=== PATIENT | female | born 1970 | race Caucasian/White ===

== ENCOUNTER 2024-10-05 10:56 | Emergency (ER) | payer MEDICARE ==
[2024-10-05] MEDS ORDERED: FAMOTIDINE 20 MG/2 ML VIAL IV ONE (11:25)
[2024-10-05 11:35] LABS: PT Prothrombin Time 13.4 SECONDS (10-13.0); Protime INR 1.18
[2024-10-05 11:37] LABS: Absolute Basophils 0.1 K/uL (0-0.5); Absolute Eosinophils 1.3 K/uL (0-0.5); Absolute Monocytes 0.7 K/uL (0.1-1.3); Absolute Neutrophil 5.1 K/uL (1.8-8.0); Basophils % 0.8 % (0-1.3); Eosinophils % 13.7 % (0-4.4); Hematocrit 42.7 % (36.0-45.0); Hemoglobin 14.4 g/dL (12.0-15.0); MCH 27.5 pg (27.0-35.0); MCHC 33.8 g/dL (32.0-36.0); MCV 81.4 fL (80-100); MPV 8.4 fL (7.6-11.3); Monocytes % 7.1 % (3.3-12.3); Neutrophils % 56.4 % (41.7-73.7); Nucleated Red Blood Cells % 0.1 % (0-0); Platelets 240 thou/uL (152-406); RBC Red Blood Cell Count 5.25 M/uL (3.86-4.86); Red Cell Distribution Width 15.5 % (12.1-15.2)
--- NOTE | 2024-10-05 11:46 | RAD REPORT ---
EXAM: Chest Single View HISTORY: 53 years Female CHEST PAIN COMPARISON: 03/27/2024 FINDINGS: LUNGS/PLEURA: The lungs are clear. No pleural effusions or pneumothorax. No pulmonary edema. CARDIAC/MEDIASTINUM: The cardiac silhouette is within normal limits. UPPER ABDOMEN: No significant abnormality. BONES: No acute abnormality. LINES/TUBES/OTHER: N/A IMPRESSION: No evidence of acute cardiopulmonary disease.
[2024-10-05 11:47] LABS: ALT/SGPT 33 U/L (13-56); AST/SGOT 23 U/L (15-37); Albumin 3.2 g/dL (3.4-5.0); Albumin/Globulin Ratio 0.8 (1.1-1.8); Alkaline Phosphatase 82 U/L (45-117); Anion Gap 9.9 mEq/L (5.0-15.0); BUN Blood Urea Nitrogen 9 mg/dL (7-18); Bicarbonate 25 mEq/L (21-32); Bilirubin Total 0.3 mg/dL (0.2-1.0); Globulin 4.2 g/dL (2.3-3.5); Glomerular Filtration Rate 64 ml/min (=/>90); Glucose Level 103 mg/dL (74-106); Lipase 44 U/L (13-75); Magnesium 1.8 mg/dL (1.6-2.4); NT PRO-BNP 46 pg/mL (<125); Potassium 3.9 mEq/L (3.5-5.1); Protein, Total 7.4 g/dL (6.4-8.2); Sodium Level 138 mEq/L (136-145); Troponin High Sensitivity 8.2 pg/mL (<58.9)
[2024-10-05 11:56] LABS: Bilirubin Direct < 0.2 mg/dL (0-0.2); Bilirubin Indirect, Calculated 0.1 mg/dL (0.2-0.8)
--- NOTE | 2024-10-05 12:34 | RAD REPORT ---
EXAMINATION: US LOWER EXTREMITY VENOUS DOPPLER BILATERAL CLINICAL INDICATION: Female, 53 years old.PAIN TECHNIQUE: Complete bilateral duplex sonography of the lower extremity veins was performed. The exami nation included compression for vein patency, color Doppler imaging and flow augmentation in response to distal compression of the distal external iliac, common femoral, femoral, popliteal, faustina hillary, tibial and great saphenous veins. [id number]. COMPARISON: No prior exams FINDINGS: Duplex sonography imaging demonstrates all deep examined to be fully compressible with spontaneous, p hasic and augmented flow bilaterally. IMPRESSION: No evidence of deep venous thrombosis seen in either lower extremity.
--- NOTE | 2024-10-05 12:50 | RAD REPORT ---
EXAMINATION: CTA CHEST PE CLINICAL INDICATION: Female, 53 years old. CHEST PAIN TECHNIQUE: This examination was performed according to an angiographic protocol with 3D post-processi ng. This involves 3D reconstructions, MIPs, volume rendered images and/or shaded surface rendering. One or more of the following dose reduction techniques were used: Automated exposure control, adjustm ent of the mA and/or kV according to patient size, and/or iterative reconstruction. Unless otherwise specified, incidental findings do not require dedicated imaging follow-up. [id number]. COMPARISON: Same day chest radiograph. FINDINGS: LOWER NECK: Visualized thyroid gland and soft tissues are normal. LUNGS AND AIRWAYS: Airways are clear. No evidence of airspace or interstitial process.No suspicious a nd/or stable pulmonary nodules. PLEURA: No pleural effusion. No pneumothorax. Hemidiaphragms are normally positioned. MEDIASTINUM AND LYMPH NODES: No mediastinal mass or fluid collection. Normal size mediastinal, hilar, and axillary lymph nodes. Small hiatal hernia. THORACIC AORTA: No thoracic aortic aneurysm. PULMONARY ARTERIES: Caliber is within normal limits. HEART: Normal heart size. No coronary calcifications.No significant pericardial effusion. OSSEOUS STRUCTURES AND CHEST WALL: UPPER ABDOMEN: No acute abnormalities. IMPRESSION: No evidence of pulmonary emboli to the subsegmental level. Lungs are clear.
--- NOTE | 2024-10-05 13:27 | RAD REPORT ---
EXAMINATION: CT ABDOMEN AND PELVIS WITHOUT CONTRAST CLINICAL INDICATION: Female, 53 years old.ABD PAIN TECHNIQUE: CT abdomen and pelvis was performed, without IV contrast, as per department protocol. Axia l, sagittal and coronal reconstructions were obtained. One or more of the following dose reduction techniques were used: Automated exposure control, adjustment of the mA and/or kV according to the pat ient size, and/or iterative reconstruction. Unless otherwise specified, incidental findings do not require dedicated imaging follow-up. [id number]. IV CONTRAST: Not administered. COMPARISON: 07/10/2009 FINDINGS: The lack of intravenous contrast limits the sensitivity of this exam for evaluation of solid visceral organs, vascular structures, and retroperitoneum. LOWER CHEST: See separate report UPPER GI: No significant abnormality. LIVER: No significant focal abnormality. GALLBLADDER/BILE DUCTS: Cholecystectomy.? PANCREAS: No mass, ductal dilation, or kerwin-pancreatic fluid. SPLEEN: Unremarkable. ADRENALS: No adrenal masses. KIDNEYS AND URETERS: No hydronephrosis.Limited evaluation for renal lesions in the absence of IV cont rast. ABDOMINAL AORTA AND OTHER VESSELS: Normal caliber aorta and IVC. PERITONEUM: No abnormal free fluid. No free air. LYMPH NODES: No pathologic lymphadenopathy. ABDOMINAL WALL: Unremarkable SMALL BOWEL/COLON: Small bowel has normal course and caliber. No colonic wall thickening or pericolon ic inflammatory changes.Normal appendix. Mild diverticulosis without diverticulitis. URINARY BLADDER: Underdistended but grossly unremarkable. REPRODUCTIVE ORGANS: 2.4 cm left and 1.5 cm right adnexal cysts. These does not require follow-up. MUSCULOSKELETAL: No acute or suspicious osseous abnormality. ADDITIONAL FINDINGS: None. IMPRESSION: No acute findings within the abdomen or pelvis. No appendicitis. Incidental findings as noted above.
[2024-10-05 13:48] LABS: Specific Gravity 1.027 (1.005-1.030); Urine Bacteria None Seen /HPF (<20); Urine Bilirubin NEGATIVE (Negative); Urine Blood Negative (Negative); Urine Clarity Clear (Clear); Urine Color Light-Yellow (Yellow); Urine Culture Reflex Order NOT NEEDED; Urine Glucose NEGATIVE (Negative); Urine Ketones NEGATIVE (Negative); Urine Microscopic Reflex YN ORDER UMIC; Urine Mucus Slight /HPF (None Seen); Urine Nitrite NEGATIVE (Negative); Urine Protein TRACE (Negative); Urine Urobilinogen Normal (Normal); Urine WBC <5 /HPF (<5)
--- NOTE | 2024-10-05 14:12 | EDPHYS ---
Physician Documentation [facility] Name: Pinky Warner Age: 53 yrs Sex: Female : 1970 Arrival Date: 10/05/2024 Time: 10:56 Bed 2 Private MD: ED Physician Albert Waldron HPI: 10/05 11:08 This 53 yrs old Female presents to ER via Unassigned with complaints of Chest lester Pain. 11:08 The patient or guardian reports chest pain that is located primarily in the anterior lester chest wall, bilaterally. Onset: just prior to arrival. The pain does not radiate. Associated signs and symptoms: Pertinent positives: shortness of breath. The chest pain is described as aching. Modifying factors: The symptoms are alleviated by remaining still. Severity of pain: At its worst the pain was moderate in the emergency department the pain is unchanged. The patient has experienced similar episodes in the past, a few times. LOGISTIC MANAGER: 11:10 LMP N/A - Post-menopause, Not jl7 Historical: - Allergies: 11:10 Peanut; jl7 11:10 all nuts; jl7 11:10 Wasps; jl7 11:10 Bees; jl7 11:10 cilantro; jl7 11:10 Yoli; jl7 11:10 apricots; jl7 11:10 bronchosol; jl7 11:10 Levaquin; jl7 11:10 Keflex; jl7 11:10 Medrol; jl7 11:10 Symbicort; jl7 11:10 Ultram; jl7 - Home Meds: 11:10 Celexa 10 mg Oral tablet daily [Active]; Albuterol Inhl [Active]; Lomotil oral jl7 [Active]; ProAir RespiClick inhalation [Active]; fiorcet [Active]; Loprox (as olamine) topical [Active]; Inderal LA Oral [Active]; - PMHx: 11:10 colitis; Asthma; Migraine; Lupus erythematosus; acid reflux; Hypothyroidism; jl7 - Immunization history:: Adult Immunizations unknown. - Infectious Disease History:: Denies. - Family history:: not pertinent. - Social history:: Smoking status: Patient denies any tobacco usage or history of. ROS: 11:08 Constitutional: Negative for fever, chills, and weight loss, Eyes: Negative for injury, lester pain, redness, and discharge, ENT: Negative for injury, pain, and discharge, Neck: Negative for injury, pain, and swelling, Respiratory: Negative for shortness of breath, cough, wheezing, and pleuritic chest pain, Abdomen/GI: Negative for abdominal pain, nausea, vomiting, diarrhea, and constipation, Back: Negative for injury and pain, : Negative for injury, bleeding, discharge, and swelling, MS/Extremity: Negative for injury and deformity, Skin: Negative for injury, rash, and discoloration, Neuro: Negative for headache, weakness, numbness, tingling, and seizure, Psych: Negative for depression, anxiety, suicide ideation, homicidal ideation, and hallucinations, Allergy/Immunology: Negative for hives, rash, and allergies, Endocrine: Negative for neck swelling, polydipsia, polyuria, polyphagia, and marked weight changes, Hematologic/Lymphatic: Negative for swollen nodes, abnormal bleeding, and unusual bruising, 11:08 Cardiovascular: Positive for chest pain, Exam: 11:08 Constitutional: This is a well developed, well nourished patient who is awake, alert, lester and in no acute distress. Head/Face: Normocephalic, atraumatic. Eyes: Pupils equal round and reactive to light, extra-ocular motions intact. Lids and lashes normal. Conjunctiva and sclera are non-icteric and not injected. Cornea within normal limits. Periorbital areas with no swelling, redness, or edema. ENT: Nares patent. No nasal discharge, no septal abnormalities noted. Tympanic membranes are normal and external auditory canals are clear. Oropharynx with no redness, swelling, or masses, exudates, or evidence of obstruction, uvula midline. Mucous membranes moist. Neck: Trachea midline, no thyromegaly or masses palpated, and no cervical lymphadenopathy. Supple, full range of motion without nuchal rigidity, or vertebral point tenderness. No Meningismus. Chest/axilla: Normal chest wall appearance and motion. Nontender with no deformity. No lesions are appreciated. Cardiovascular: Regular rate and rhythm with a normal S1 and S2. No gallops, murmurs, or rubs. Normal PMI, no JVD. No pulse deficits. Respiratory: Lungs have equal breath sounds bilaterally, clear to auscultation and percussion. No rales, rhonchi or wheezes noted. No increased work of breathing, no retractions or nasal flaring. Abdomen/GI: Soft, non-tender, with normal bowel sounds. No distension or tympany. No guarding or rebound. No evidence of tenderness throughout. Back: No spinal tenderness. No costovertebral tenderness. Full range of motion. Skin: Warm, dry with normal turgor. Normal color with no rashes, no lesions, and no evidence of cellulitis. MS/ Extremity: Pulses equal, no cyanosis. Neurovascular intact. Full, normal range of motion., bilateral aka Neuro: Awake and alert, GCS 15, oriented to person, place, time, and situation. Cranial nerves II-XII grossly intact. Motor strength 5/5 in all extremities. Sensory grossly intact. Cerebellar exam normal. Normal gait. Psych: Awake, alert, with orientation to person, place and time. Behavior, mood, and affect are within normal limits. 11:08 Musculoskeletal/extremity: DVT Exam: No signs of deep vein thrombosis. no pain, no swelling, no tenderness, negative Homans' sign noted on exam, no appreciated bluish discoloration, no erythema, no increased warmth, 11:57 ECG was reviewed by the Attending Physician. [facility] 13:30 ECG was reviewed by the Attending Physician. [facility] Vital Signs: 10:56 Pulse 65; Resp 15; Temp 97; Pulse Ox 95% ; Weight 125.19 kg; Height 5 ft. 4 in. ; Pain jl7 3/10; 11:29 BP 111 / 57; Pulse 64; Resp 18; Pulse Ox 98% ; kn 12:12 BP 111 / 55; Pulse 61; Resp 15; Pulse Ox 97% ; jl7 13:25 BP 114 / 53; Pulse 62; Resp 18; Pulse Ox 100% on R/A; kn 10:56 Body Mass Index 47.37 (125.19 kg, 162.56 cm) jl7 10:56 Pain Scale: Adult jl7 MDM: 11:04 Medical Screening Exam initiated [facility] 11:11 Differential diagnosis: abnormal EKG, acute myocardial infarction, acute pericarditis, lester coronary artery disease chest wall pain, congestive heart failure Cholelithiasis costochondritis, hiatal hernia, peptic ulcer disease, pneumonia, pulmonary embolus, stable angina, thoracic aortic disection, unstable angina. HEART Score: History:. The patient was given aspirin in the Emergency Department. DANIELLE Risk Score: 1 - Three or more CAD risk factors, [Family Hx], [HTN], [Elevated Cholesterol], [DM], 1 - Recent [<24hrs] Severe Angina, TOTAL SCORE = 2. Data reviewed: vital signs, nurses notes, lab test result(s), EKG, radiologic studies, plain films. Consideration of Admission/Observation Patient was admitted/placed on observation. Escalation of care including admission/observation considered. I considered the following discharge prescriptions or medication management in the emergency department Medications were administered in the Emergency Department. See MAR. Independent interpretation of the following test(s) in the Emergency Department EKG: See my EKG interpretation above. Test considered but Not performed: Ultrasound no 2 d echo. Care significantly affected by the following chronic conditions: Diabetes, Hypertension, Obesity. Counseling: I had a detailed discussion with the patient and/or guardian regarding the historical points, exam findings, and any diagnostic results supporting the discharge/admit diagnosis, lab results, radiology results, the need for further work-up and treatment in the hospital. 10/05 11:07 Order name: Basic Metabolic Panel; Complete Time: 12:11 [facility] 10/05 11:07 Order name: CBC with Diff; Complete Time: 12:11 [facility] 10/05 11:07 Order name: LFT's; Complete Time: 12:11 [facility] 10/05 11:07 Order name: Magnesium; Complete Time: 12:11 [facility] 10/05 11:07 Order name: NT PRO-BNP; Complete Time: 12:11 [facility] 10/05 11:07 Order name: PT-INR; Complete Time: 12:11 10/05 11:07 Order name: Troponin HS; Complete Time: 12:11 [facility] 10/05 11:07 Order name: Lipase; Complete Time: 12:11 [facility] 10/05 11:07 Order name: Urinalysis w/ reflexes; Complete Time: 14:06 [facility] 10/05 12:52 Order name: Troponin High Sensitivity: 1 pm; Complete Time: 14:06 [facility] 10/05 11:07 Order name: XRAY Chest (1 view); Complete Time: 12:11 [facility] 10/05 11:07 Order name: US Extremity Venous W Compression Eliezer; Complete Time: 13:45 [facility] 10/05 11:07 Order name: CT Chest For PE Angio; Complete Time: 13:45 10/05 12:54 Order name: CT Abd/Pelvis - Without Contrast; Complete Time: 13:45 [facility] 10/05 12:52 Order name: EKG; Complete Time: 12:53 [facility] 10/05 11:07 Order name: Cardiac monitoring; Complete Time: 11:16 [facility] 10/05 11:07 Order name: EKG - Nurse/Tech; Complete Time: 11:16 [facility] 10/05 11:07 Order name: IV Saline Lock; Complete Time: :16 [facility] 10/05 11:07 Order name: Labs collected and sent; Complete Time: 11:24 [facility] 10/05 11:07 Order name: O2 Per Protocol; Complete Time: 11:16 [facility] 10/05 11:07 Order name: O2 Sat Monitoring; Complete Time: :16 [facility] 10/05 12:52 Order name: EKG - Nurse/Tech; Complete Time: 13:28 [facility] EC:57 Rate is 72 beats/min. Rhythm is regular. QRS [place] is Normal. SC interval is normal. QRS lester interval is normal. QT interval is normal. T waves are Normal. No ST changes noted. Clinical impression: NSR w/ Non-specific ST/T Changes and No evidence of ischemia. Interpreted by me. Reviewed by me. 13:30 Rate is 62 beats/min. Rhythm is regular. QRS [place] is Normal. SC interval is normal. QRS lester interval is normal. QT interval is normal. No Q waves. T waves are Normal. No ST changes noted. Clinical impression: NSR w/ Non-specific ST/T Changes and No evidence of ischemia. Interpreted by me. Reviewed by me. Administered Medications: 11:16 Not Given (pt received ASA 324mg via EMS ptaa): aspirinchewable tablet 81 mg PO once kn 11:29 Drug: Famotidine IVP 20 mg IVP once; dilute with 10 mL 0.9% NaCl; give over 2 minutes jl7 Route: IVP; Site: left antecubital; 12:10 Follow up: Response: No adverse reaction jl7 14:59 Drug: Nitrofurantoin PO 100 mg PO once; administer with food Route: PO; kn 15:10 Follow up: Response: Medication administered at discharge. jl7 14:59 Drug: Rocephin IV 1 grams IV at per protocol once; Given slow IV push per pharmacy kn instructions Route: IV; Rate: per protocol; Site: left antecubital; 15:05 Follow up: Response: No adverse reaction; IV Status: Completed infusion jl7 Disposition Summary: 10/05/24 14:12 Discharge Ordered Notes: Location: Home lester Problem: new lester Condition: Stable lester Diagnosis - Chest pain, unspecified lester - Pleurisy lester - Obesity, unspecified lester - UTI/ Urinary tract infection, site not specified lester Followup: lester - With: Private Physician - When: 2 - 3 days - Reason: Recheck today's complaints, Re-evaluation by your physician Followup: lester - With: Duong Barron MD - When: 2 - 3 days - Reason: Recheck today's complaints, Re-evaluation by your physician Discharge Instructions: - Discharge Summary Sheet lester - Nonspecific Chest Pain, Adult lester - Chest Wall Pain lester - Obesity, Adult lester - Pleurisy lester - Chest Wall Pain, [id number] lester - Urinary Tract Infection, Adult, Obhs-qu-[id number] lester - Nonspecific Chest Pain, Adult, Hhtz-bt-[id number] lester - Aspirin and Your Heart lester - Pleurisy, Gvwb-[id number] lester - Obesity, Adult, Tago-vj-Yvuc lester Forms: - Medication Reconciliation Form lester - Antibiotic Education lester - Prescription Opioid Use lester - Patient Portal Instructions lester - Leadership Thank You Letter [facility] Prescriptions: - Macrobid 100 mg Oral Capsule - take 1 capsule ORAL route every 12 hours for 7 days; 14 capsule; Refills: 0, lester Product Selection Permitted Signatures: Dispatcher [employer] Albert Rosa MD MD cha Leal, Jahala, RN RN jl7 KULWANT AYALA RN RN kn Corrections: (The following items were deleted from the chart) 11:07 11:07 BASIC METABOLIC PANEL+C.LAB.BRZ ordered. EDMS EDMS 11:07 11:07 CBC+H.LAB.BRZ ordered. EDMS EDMS 11:07 11:07 HEPATIC FUNCTION+C.LAB.BRZ ordered. EDMS EDMS 11:07 11:07 MAGNESIUM+C.LAB.BRZ ordered. EDMS EDMS 11:07 11:07 PROBNP+C.LAB.BRZ ordered. EDMS EDMS 11:07 11:07 PROTIME (+INR)+COAG.LAB.BRZ ordered. EDMS EDMS 11:07 11:07 Troponin High Sensitivity+C.LAB.BRZ ordered. EDMS EDMS 11: 11:07 LIPASE+C.LAB.BRZ ordered. EDMS EDMS 11: 11:07 Urinalysis+U.LAB.BRZ ordered. EDMS EDMS 11: 11:07 Chest Single View+RAD.RAD.BRZ ordered. EDMS EDMS 11: 11:07 Extrem Venous W Compression Eliezer+US.RAD.BRZ ordered. EDMS EDMS 11: 11:07 Chest For PE Angio+CT.RAD.BRZ ordered. EDMS EDMS
--- NOTE | 2024-10-05 14:12 | ER ---
Nurse's Notes [facility] Name: Pinky Warner Age: 53 yrs Sex: Female : 1970 Arrival Date: 10/05/2024 Time: 10:56 Bed 2 Private MD: Diagnosis: Chest pain, unspecified;Pleurisy;Obesity, unspecified;UTI/ Urinary tract infection, site not specified Presentation: 10/05 10:56 Chief complaint: EMS states: Toned out for generalized pain, on arrival to scene pt c/o jl7 intermittent CP, dizziness and SOB x 2 weeks. Coronavirus screen: At this time, the client does not indicate any symptoms associated with coronavirus-19. Ebola Screen: No symptoms or risks identified at this time. Initial Sepsis Screen: Does the patient meet any 2 criteria? No. Patient's initial sepsis screen is negative. Does the patient have a suspected source of infection? No. Patient's initial sepsis screen is negative. Risk Assessment: Do you want to hurt yourself or someone else? Patient reports no desire to harm self or others. Onset of symptoms was October 05, 2024. 10:56 Method Of Arrival: Ambulatory jl7 10:56 Acuity: DOREEN 2 jl7 10:56 Care prior to arrival: Medication(s) given: ASA, 81 mg, x 4, Normal saline infusion, jl7 100 mL zofran 4 mg, Nitro x1 IV initiated. 20 GA, in the left antecubital area. Triage Assessment: 11:10 General: Appears in no apparent distress. uncomfortable, Behavior is calm, cooperative, jl7 appropriate for age. Pain: Complains of pain in mid-sternal area Pain currently is 3 out of 10 on a pain scale. at worst was 10 out of 10 on a pain scale. Neuro: Level of Consciousness is awake, alert, obeys commands, Oriented to person, place, time, situation. Cardiovascular: Patient's skin is warm and dry. Rhythm is regular. Respiratory: Airway is patent Respiratory effort is even, unlabored, Respiratory pattern is regular, symmetrical. GI: Derm: Skin is pink, warm \T\ dry. CARDIAC SONOGRAPHER: 11:10 LMP N/A - Post-menopause, Not jl7 Historical: - Allergies: 11:10 Peanut; jl7 11:10 all nuts; jl7 11:10 Wasps; jl7 11:10 Bees; jl7 11:10 cilantro; jl7 11:10 Yoli; jl7 11:10 apricots; jl7 11:10 bronchosol; jl7 11:10 Levaquin; jl7 11:10 Keflex; jl7 11:10 Medrol; jl7 11:10 Symbicort; jl7 11:10 Ultram; jl7 - Home Meds: 11:10 Celexa 10 mg Oral tablet daily [Active]; Albuterol Inhl [Active]; Lomotil oral jl7 [Active]; ProAir RespiClick inhalation [Active]; fiorcet [Active]; Loprox (as olamine) topical [Active]; Inderal LA Oral [Active]; - PMHx: 11:10 colitis; Asthma; Migraine; Lupus erythematosus; acid reflux; Hypothyroidism; jl7 - Immunization history:: Adult Immunizations unknown. - Infectious Disease History:: Denies. - Family history:: not pertinent. - Social history:: Smoking status: Patient denies any tobacco usage or history of. Screenin:12 [facility] ED Fall Risk Assessment (Adult) History of falling in the last 3 months, jl7 including since admission No falls in past 3 months (0 pts) Confusion or Disorientation No (0 pts) Intoxicated or Sedated No (0 pts) Impaired Gait No (0 pts) Mobility Assist Device Used No (0 pt) Altered Elimination No (0 pt) Score/Fall Risk Level 0 - 2 = Low Risk Oriented to surroundings, Maintained a safe environment. Abuse screen: Denies threats or abuse. Denies injuries from another. Nutritional screening: No deficits noted. Tuberculosis screening: No symptoms or risk factors identified. Assessment: 11:00 General: See triage. jl7 13:21 Pain: kn Vital Signs: 10:56 Pulse 65; Resp 15; Temp 97; Pulse Ox 95% ; Weight 125.19 kg; Height 5 ft. 4 in. ; Pain jl7 3; 11:29 BP 111 / 57; Pulse 64; Resp 18; Pulse Ox 98% ; kn 12:12 BP 111 / 55; Pulse 61; Resp 15; Pulse Ox 97% ; jl7 13:25 BP 114 / 53; Pulse 62; Resp 18; Pulse Ox 100% on R/A; kn 10:56 Body Mass Index 47.37 (125.19 kg, 162.56 cm) jl7 10:56 Pain Scale: Adult jl7 ED Course: 11:00 Patient arrived in ED. ty 11:00 Client placed on continuous cardiac and pulse oximetry monitoring. NIBP monitoring jl7 applied. 11:00 Patient has correct armband on for positive identification. Provided Education on: use jl7 of call doe. 11:00 No provider procedures requiring assistance completed. Initial lab(s) drawn, by ED jl7 staff, sent to lab. EKG done, by ED staff, reviewed by Albert Waldron MD. Maintain EMS IV. Dressing intact. Good blood return noted. Site clean \T\ dry. Gauge \T\ site: 20 left AC. Flushed with 10 mL NS. Patient maintains SpO2 saturation greater than 95% on room air. 11:03 Cindy Smith, RN is Primary Nurse. jl7 11:04 Albert Waldron MD is Attending Physician. lester 11:10 Triage completed. jl7 11:10 Arm band placed on right wrist. jl7 11:33 XRAY Chest (1 view) In Process Unspecified. EDMS 11:53 Awaiting: u/s at bedside. kn 12:22 US Extremity Venous W Compression Eliezer In Process Unspecified. EDMS 12:30 CT Chest For PE Angio In Process Unspecified. EDMS 12:33 Patient moved back from radiology. kn 13:[address] kn 13:17 CT Abd/Pelvis - Without Contrast In Process Unspecified. EDMS 13:19 Patient moved back from CT. kn 13:30 EKG done, by ED staff, reviewed by Albert Waldron MD. em1 14:11 Duong Barron MD is Referral Physician. lester 15:09 IV discontinued, intact, bleeding controlled, No redness/swelling at site. Pressure jl7 dressing applied. Administered Medications: 11:16 Not Given (pt received ASA 324mg via EMS ptaa): aspirinchewable tablet 81 mg PO once kn 11:29 Drug: Famotidine IVP 20 mg IVP once; dilute with 10 mL 0.9% NaCl; give over 2 minutes jl7 Route: IVP; Site: left antecubital; 12:10 Follow up: Response: No adverse reaction jl7 14:59 Drug: Nitrofurantoin PO 100 mg PO once; administer with food Route: PO; kn 15:10 Follow up: Response: Medication administered at discharge. jl7 14:59 Drug: Rocephin IV 1 grams IV at per protocol once; Given slow IV push per pharmacy kn instructions Route: IV; Rate: per protocol; Site: left antecubital; 15:05 Follow up: Response: No adverse reaction; IV Status: Completed infusion jl7 Medication: 12:12 VIS not applicable for this client. jl7 Outcome: 14:12 Discharge ordered by MD. batista 15:09 Discharged to home via wheelchair, with family, coretta 15:09 Condition: stable 15:09 Discharge instructions given to patient, family, Instructed on discharge instructions, follow up and referral plans. medication usage, Demonstrated understanding of instructions, follow-up care, medications, Prescriptions given X 1, 15:09 Patient left the ED. jl7 Signatures: Dispatcher [employer] EDMS Albert Waldron MD MD cha Martinez, Rajesh em1 Cindy Smith RN RN morro7 Ga Navarrete KARLENE, RN RN ginette Corrections: (The following items were deleted from the chart) 12:12 11:00 BP 111 / 55; Pulse 61bpm; Resp 15bpm; Pulse Ox 97%; jl7 jl7
[2024-10-05] MEDS ORDERED: NA CHLORIDE 0.9% 100 ML ONE (14:52)
[2024-10-05] MEDS ORDERED: CEFTRIAXONE 1000 MG/VIAL ONE (14:52)
[2024-10-05] MEDS ORDERED: NITROFURAN MACRO 100 MG CAP PO ONE (14:52)
[2024-10-05 15:24] VITALS: TEMP 97
[2024-10-05 15:34] VITALS: BP 114/53; O2SAT 100
--- NOTE | 2024-10-08 11:11 | EKG ---
Test Date: 2024-10-05 Test Time: 13:28:39 Software Design Analyst: [place] MEASUREMENT RESULTS: Intervals: Rate: 62 NE: 132 QRSD: 82 QT: 452 QTc: 458 [place]: P: -3 NE: 132 QRS: 18 T: 33 INTERPRETIVE STATEMENTS: Normal sinus rhythm Cannot rule out Anterior infarct, age undetermined Abnormal ECG Compared to ECG 10/05/2024 11:01:51 No significant changes Electronically Signed On 10-08-24 11:02:49 CDT by Chu Connor
--- NOTE | 2024-10-08 11:11 | EKG ---
Test Date: 2024-10-05 Test Time: 11:01:51 Deputy Director Of Public Works: [id number] MEASUREMENT RESULTS: Intervals: Rate: 72 [place]: 122 QRSD: 82 QT: 418 QTc: 457 [place]: P: -3 [place]: 122 QRS: 15 T: 24 INTERPRETIVE STATEMENTS: Normal sinus rhythm Cannot rule out Anterior infarct, age undetermined Abnormal ECG No previous ECG available for comparison Electronically Signed On 10-08-24 11:02:57 CDT by Chu Connor
== END 2024-10-05 15:09 | disposition home or self-care (01) ==
LOC: ER 10:56
DX: R09.1 Pleurisy (principal); N39.0 Urinary tract infection, site not specified; E66.9 Obesity, unspecified; Z68.42 Body mass index [BMI] 45.0-49.9, adult
CPT/HCPCS: 36415; 71045; 71275; 74176; 80048; 80076; 81001; 83690; 83735; 83880; 84484; 85025; 85610; 93005; 93970; 96374; 96375; 99285; J0696; Q9967

== ENCOUNTER 2024-10-09 12:15 | Emergency (ER) | payer MEDICARE ==
[2024-10-09] MEDS ORDERED: ONDANSETRON 4 MG/2 ML VIAL ONE (12:57)
[2024-10-09] MEDS ORDERED: MAGNES/ALUMIN/SIMET 30ML UCUP ONE (12:58)
[2024-10-09] MEDS ORDERED: NA CHLORIDE 0.9% 1,000 ML ONE (12:58)
[2024-10-09] MEDS ORDERED: LIDOCAINE VISCOUS 2% 10ML ORAL SOLN ONE (12:58)
[2024-10-09] MEDS ORDERED: FAMOTIDINE 20 MG/2 ML VIAL IV ONE (12:58)
[2024-10-09 13:30] LABS: Absolute Basophils 0.1 K/uL (0-0.5); Absolute Lymphocytes (CBC) 1.8 K/uL (0.7-4.9); Absolute Monocytes 0.6 K/uL (0.1-1.3); Absolute Neutrophil 4.9 K/uL (1.8-8.0); Basophils % 0.9 % (0-1.3); Eosinophils % 12.2 % (0-4.4); Hematocrit 43.9 % (36.0-45.0); Hemoglobin 15.2 g/dL (12.0-15.0); Lymphocytes % 21.7 % (15.3-44.8); MCH 28.2 pg (27.0-35.0); MCHC 34.5 g/dL (32.0-36.0); MCV 81.8 fL (80-100); MPV 8.7 fL (7.6-11.3); Monocytes % 7.2 % (3.3-12.3); Platelets 208 thou/uL (152-406); RBC Red Blood Cell Count 5.37 M/uL (3.86-4.86); Red Cell Distribution Width 15.2 % (12.1-15.2)
[2024-10-09 13:46] LABS: Albumin 3.7 g/dL (3.4-5.0); Albumin/Globulin Ratio 0.9 (1.1-1.8); Anion Gap 11.2 mEq/L (5.0-15.0); Bilirubin Total 0.4 mg/dL (0.2-1.0); Globulin 4.3 g/dL (2.3-3.5); Potassium 4.2 mEq/L (3.5-5.1); Troponin High Sensitivity 6.1 pg/mL (<58.9)
[2024-10-09 13:48] LABS: Specific Gravity 1.028 (1.005-1.030); Sqamous Epithelial <5 /HPF (None Seen); Urine Bacteria None Seen /HPF (<20); Urine Bilirubin 1+ (Negative); Urine Blood Negative (Negative); Urine Clarity Extremely Turbid (Clear); Urine Color Yellow (Yellow); Urine Culture Reflex Order NOT NEEDED; Urine Glucose NEGATIVE (Negative); Urine Ketones 1+ (Negative); Urine Microscopic Reflex YN ORDER UMIC; Urine Mucus Slight /HPF (None Seen); Urine Nitrite NEGATIVE (Negative); Urine Protein 2+ (Negative); Urine RBC <5 /HPF (None Seen); Urine Urobilinogen 1+ (Normal); Urine WBC <5 /HPF (<5); Urine pH 5.5 (5.0-7.0)
[2024-10-09] MEDS ORDERED: hydrOXYzine HCL 25 MG TAB ONE (13:49)
[2024-10-09] MEDS ORDERED: MORPHINE 4 MG/ML SYR ONE (14:35)
--- NOTE | 2024-10-09 14:58 | RAD REPORT ---
EXAMINATION: CT Abdomen Pelvis W Contrast CLINICAL INDICATION: Female, 53 years old. ABD PAIN TECHNIQUE: CT abdomen and pelvis was performed, after the administration of IV [facility] Axial, sagittal and coronal reconstructions were obtained. One or more of the following dose reduction techniques were used: Automated exposure control, adjustment of the mA and k V according to patient size, and iterative reconstruction. Unless otherwise specified, incidental findings do not require dedicated imaging follow-up. COMPARISON: 07/10/2009. FINDINGS: LOWER CHEST: The visualized lung bases are clear. LIVER: Normal in size and contour. No focal lesion. BILIARY SYSTEM: Status post cholecystectomy. SPLEEN: Normal size. No focal lesion. PANCREAS: No mass, ductal dilation, or kerwin-pancreatic fluid. ADRENALS: Normal; no mass. KIDNEYS: Normal size and contour. No hydronephrosis. URINARY BLADDER: Decompressed limiting evaluation. GASTROINTESTINAL TRACT: No evidence of free air, significant intra-abdominal free fluid, bowel obstru ction or abscess. Mild distal colonic diverticulosis. APPENDIX: Normal appendix. LYMPH NODES: No lymphadenopathy. MUSCULOSKELETAL: No acute or suspicious osseous abnormality. ADDITIONAL FINDINGS: Left adnexal 2.4 cm cyst or follicle. IMPRESSION: No acute or concerning abnormalities seen in the abdomen or pelvis. Incidental findings as above.
--- NOTE | 2024-10-09 15:30 | ER ---
Nurse's Notes [facility] Name: Pinky Warner Age: 53 yrs Sex: Female : 1970 Arrival Date: 10/09/2024 Time: 12:15 Bed 19 Private MD: Diagnosis: Epigastric pain Presentation: 10/09 12:30 Chief complaint: Patient states: Abdominal swelling and pain in lower abdomen and ph epigastric area, N/D, generalized weakness and SOB. Coronavirus screen: Vaccine status:. Ebola Screen: No symptoms or risks identified at this time. Initial Sepsis Screen: Does the patient meet any 2 criteria? No. Patient's initial sepsis screen is negative. Does the patient have a suspected source of infection? No. Patient's initial sepsis screen is negative. Risk Assessment: Do you want to hurt yourself or someone else? Patient reports no desire to harm self or others. Onset of symptoms was October 09, 2024. 12:30 Method Of Arrival: Wheelchair ph 12:30 Acuity: DOREEN 3 ph Historical: - Allergies: 12:34 all nuts; ph 12:34 apricots; ph 12:34 Bees; ph 12:34 bronchosol; ph 12:34 Cilantro; ph 12:34 Keflex; ph 12:34 Levaquin; ph 12:34 Medrol; ph 12:34 Peanut; ph 12:34 Yoli; ph 12:34 Symbicort; ph 12:34 Ultram; ph 12:34 Wasps; ph - PMHx: 12:34 acid reflux; Asthma; Colitis; Hypothyroidism; Migraine; Lupus erythematosus; ph - Immunization history:: Adult Immunizations unknown. - Infectious Disease History:: Denies. - Social history:: Smoking status: Patient denies any tobacco usage or history of. Screenin:26 [facility] ED Fall Risk Assessment (Adult) History of falling in the last 3 months, kc6 including since admission No falls in past 3 months (0 pts) Confusion or Disorientation No (0 pts) Intoxicated or Sedated No (0 pts) Impaired Gait No (0 pts) Mobility Assist Device Used No (0 pt) Altered Elimination No (0 pt) Score/Fall Risk Level 0 - 2 = Low Risk Oriented to surroundings, Maintained a safe environment, Educated pt \\T\\ family on fall prevention, incl call for assistance when getting out of bed. Abuse screen: Denies threats or abuse. Denies injuries from another. Nutritional screening: No deficits noted. Tuberculosis screening: No symptoms or risk factors identified. Assessment: 13:26 General: Appears in no apparent distress. uncomfortable, obese, well groomed, well kc6 developed, Behavior is calm, cooperative, appropriate for age. Pain: Complains of pain in chest and abdomen. Neuro: Level of Consciousness is awake, alert, obeys commands, Oriented to person, place, time, situation, Appropriate for age Reports dizziness, weakness. Cardiovascular: Reports chest pain, fatigue, lightheadedness, Capillary refill < 3 seconds. Respiratory: Reports shortness of breath on exertion Airway is patent Trachea midline Respiratory effort is even, unlabored, Respiratory pattern is regular, symmetrical. GI: Abdomen is round non-distended, Bowel sounds present X 4 quads. Abd is soft X 4 quads Reports diarrhea, nausea, Patient currently denies vomiting. : No signs and/or symptoms were reported regarding the genitourinary system. Urine is cloudy. EENT: No signs and/or symptoms were reported regarding the EENT system. Derm: No signs and/or symptoms reported regarding the dermatologic system. Skin is intact, is healthy with good turgor, Skin is pale. Musculoskeletal: No signs and/or symptoms reported regarding the musculoskeletal system. Circulation, motion, and sensation intact. Range of motion: intact in all extremities. 13:50 Reassessment: pt appears to be sitting up in bed, hyperventilating and gagging. states, kc6 "something isn't write, I feel like I can't breath or swallow." pt coached through deep breathing exercises and asked if she would like anything for anxiety. pt declines ativan or xanax, requesting valium. Dr. Boggs made aware. 13:55 Reassessment: pt refusing Atarax 25mg PO at this time. states, "ativan and xanax make kc6 me feel worse." pt informed that this medication is a different class. pt still refusing. 14:48 General: Appears in no apparent distress. uncomfortable, Behavior is anxious, crying, kc6 restless. 14:54 Reassessment: Patient appears in no apparent distress at this time. Patient and/or db family updated on plan of care and expected duration. Pain level reassessed. PATIENT REFUSED ATARAX. STATES WANTS VALIUM. 15:54 Reassessment: Patient appears in no apparent distress at this time. No changes from kc6 previously documented assessment. Patient and/or family updated on plan of care and expected duration. Pain level reassessed. Patient is alert, oriented x 3, equal unlabored respirations, skin warm/dry/pink. Vital Signs: 12:30 BP 117 / 68; Pulse 71; Resp 18; Temp 98.7(O); Pulse Ox 98% ; Weight 121.11 kg; Height 5 ph ft. 4 in. ; 14:48 BP 110 / 77; Pulse 72; Resp 18 S; Pulse Ox 99% on R/A; kc6 12:30 Body Mass Index 45.83 (121.11 kg, 162.56 cm) ph ED Course: 12:17 Patient arrived in ED. mr 12:24 Nicola Boggs MD is Attending Physician. rt 12:34 Triage completed. ph 12:35 Arm band placed on Patient placed in an exam room. ph 12:48 Rose King, CLAUDINE is Primary Nurse. kc6 13:25 CT Abd/Pelvis - IV Contrast Only In Process Unspecified. EDMS 13:26 Patient has correct armband on for positive identification. Bed in low position. Call kc6 light in reach. Side rails up X 1. Adult w/ patient. Pulse ox on. NIBP on. Door closed. Noise minimized. Lights dimmed. Warm blanket given. Pillow given. Verbal reassurance given. 13:26 Initial lab(s) drawn, by ED staff, sent to lab. Patient maintains SpO2 saturation kc6 greater than 95% on room air. 13:48 Inserted saline lock: 20 gauge in left antecubital area, using aseptic technique. Blood am7 collected. Flushed with 10 mL NS. 15:25 Assisted to bathroom. kc6 15:54 No provider procedures requiring assistance completed. IV discontinued, intact, kc6 bleeding controlled, No redness/swelling at site. Pressure dressing applied. Administered Medications: 13:54 Drug: Famotidine IVP 20 mg IVP once; dilute with 10 mL 0.9% NaCl; give over 2 minutes kc6 Route: IVP; Site: left antecubital; 15:32 Follow up: Response: No adverse reaction kc6 13:54 Drug: Ondansetron IVP 4 mg IVP once; over 2 minutes Route: IVP; Site: left antecubital; kc6 15:32 Follow up: Response: No adverse reaction; Nausea is decreased kc6 13:54 Drug: NS 0.9% IV 1000 ml IV at 1 bolus Per protocol; to be given as a bolus over 60 kc6 minutes Route: IV; Rate: 1 bolus; Site: left antecubital; 15:32 Follow up: Response: No adverse reaction; IV Status: Completed infusion; IV Intake: kc6 1000ml 13:54 Drug: GI Cocktail without - (Maalox PO 30 ml, Lidocaine Mucous Membrane 2 % 15 kc6 ml) PO once Route: PO; 15:32 Follow up: Response: No adverse reaction kc6 14:43 Drug: morphine IVP or IV 4 mg IVP once over 4 mins Route: IVP; Infused Over: 4 mins; db Site: right antecubital; 15:31 Follow up: Response: No adverse reaction; Pain is decreased; RASS: Alert and Calm (0) kc6 14:54 Not Given (Patient Refused): [id number] mg PO once kc6 15:31 Not Given (Physician Discretion): ns 0.9% 500 ml 500 ml IV at 1 bolus once; to be given kc6 as a bolus over 30 minutes Medication: 15:55 VIS not applicable for this client. kc6 Intake: 15:32 IV: 1000ml; Total: 1000ml. kc6 Outcome: 15:30 Discharge ordered by MD. rt 15:54 Discharged to home via wheelchair, with family, kc6 15:54 Condition: good 15:54 Discharge instructions given to patient, family, Instructed on discharge instructions, follow up and referral plans. medication usage, Demonstrated understanding of instructions, follow-up care, medications, Prescriptions given X 2, 15:55 Patient left the ED. kc6 Signatures: Dispatcher [employer] EDMS MarquisSandra, Reg Reg Francheska Moon RN RN ph Campbell, CLAUDINE Rose RN kc6 Blank Kirkland RN RN db [place], Ryan, MD MD rt Sandie Day am7 Corrections: (The following items were deleted from the chart) 12:34 12:30 BP 117 / 68; Pulse 71bpm; Resp 18bpm; Pulse Ox 98%; 121.11 kg; Height 5 ft. 4 ph in.; BMI: 45.8; ph
--- NOTE | 2024-10-09 15:30 | EDPHYS ---
Physician Documentation [facility] Name: Pinky Warner Age: 53 yrs Sex: Female : 1970 Arrival Date: 10/09/2024 Time: 12:15 Bed 19 Private MD: ED Physician Nicola Boggs HPI: 10/09 14:30 This 53 yrs old Female presents to ER via Wheelchair with complaints of Abdominal Pain, rt Shortness Of Breath, Weakness. 14:31 Patient presents to the ED with upper, lower abdominal pain with nausea and diarrhea. rt Patient states that she has had lower abdominal pain for over a week, states that the epigastric pain is new. Is worse after eating. Denies other acute complaints at this time, symptoms are moderate in severity, no other aggravating or alleviating factors.. Historical: - Allergies: 12:34 all nuts; ph 12:34 apricots; ph 12:34 Bees; ph 12:34 bronchosol; ph 12:34 Cilantro; ph 12:34 Keflex; ph 12:34 Levaquin; ph 12:34 Medrol; ph 12:34 Peanut; ph 12:34 Yoli; ph 12:34 Symbicort; ph 12:34 Ultram; ph 12:34 Wasps; ph - PMHx: 12:34 acid reflux; Asthma; Colitis; Hypothyroidism; Migraine; Lupus erythematosus; ph - Immunization history:: Adult Immunizations unknown. - Infectious Disease History:: Denies. - Social history:: Smoking status: Patient denies any tobacco usage or history of. ROS: 14:31 Constitutional: Negative for fever, chills, and weight loss, Cardiovascular: Negative rt for chest pain, palpitations, and edema, Respiratory: Negative for shortness of breath, cough, wheezing, and pleuritic chest pain, MS/Extremity: Negative for injury and deformity, Skin: Negative for injury, rash, and discoloration, Neuro: Negative for headache, weakness, numbness, tingling, and seizure, 14:31 Abdomen/GI: Positive for abdominal pain, nausea, diarrhea, Exam: 14:31 Constitutional: This is a well developed, well nourished patient who is awake, alert, rt and in no acute distress. Head/Face: Normocephalic, atraumatic. Chest/axilla: Normal chest wall appearance and motion. Nontender with no deformity. No lesions are appreciated. Cardiovascular: Regular rate and rhythm with a normal S1 and S2. No gallops, murmurs, or rubs. Normal PMI, no JVD. No pulse deficits. Respiratory: Lungs have equal breath sounds bilaterally, clear to auscultation and percussion. No rales, rhonchi or wheezes noted. No increased work of breathing, no retractions or nasal flaring. Skin: Warm, dry with normal turgor. Normal color with no rashes, no lesions, and no evidence of cellulitis. MS/ Extremity: Pulses equal, no cyanosis. Neurovascular intact. Full, normal range of motion. Neuro: Awake and alert, GCS 15, oriented to person, place, time, and situation. Cranial nerves II-XII grossly intact. Motor strength 5/5 in all extremities. Sensory grossly intact. Cerebellar exam normal. Normal gait. 14:31 ECG was reviewed by the Attending Physician. 14:31 Abdomen/GI: Tenderness to the epigastrium without rebound, guarding, distention, Vital Signs: 12:30 BP 117 / 68; Pulse 71; Resp 18; Temp 98.7(O); Pulse Ox 98% ; Weight 121.11 kg; Height 5 ph ft. 4 in. ; 14:48 BP 110 / 77; Pulse 72; Resp 18 S; Pulse Ox 99% on R/A; kc6 12:30 Body Mass Index 45.83 (121.11 kg, 162.56 cm) ph MDM: 12:36 Medical Screening Exam initiated rt 15:34 Differential diagnosis: Gastritis, pancreatitis, UTI, ACS, bowel obstruction. Data rt reviewed: vital signs, nurses notes, lab test result(s), EKG, radiologic studies. I considered the following discharge prescriptions or medication management in the emergency department Medications were administered in the Emergency Department. See MAR. Independent interpretation of the following test(s) in the Emergency Department CT Scan: My interpretation is No bowel obstruction syndrome interpretation of CT scan images. Care significantly affected by the following chronic conditions: Lupus. Counseling: I had a detailed discussion with the patient and/or guardian regarding the historical points, exam findings, and any diagnostic results supporting the discharge/admit diagnosis, lab results, radiology results, the need for outpatient follow up. Response to treatment: the patient's symptoms have mildly improved after treatment. Special discussion: I discussed with the patient/guardian in detail that at this point there is no indication for admission to the hospital. It is understood, however, that if the symptoms persist or worsen the patient needs to return immediately for re-evaluation. 10/09 12:49 Order name: CBC with Diff; Complete Time: 13:50 rt 10/09 12:49 Order name: CMP; Complete Time: 13:50 rt 10/09 12:49 Order name: Lipase; Complete Time: 13:50 rt 10/09 12:49 Order name: Urinalysis w/ reflexes; Complete Time: 13:50 rt 10/09 12:49 Order name: Troponin High Sensitivity; Complete Time: 13:50 rt 10/09 12:49 Order name: CT Abd/Pelvis - IV Contrast Only; Complete Time: 14:59 rt 10/09 12:49 Order name: EKG; Complete Time: 12:50 rt 10/09 12:49 Order name: IV Saline Lock; Complete Time: 13:23 rt 10/09 12:49 Order name: Labs collected and sent; Complete Time: 13:23 rt 10/09 12:49 Order name: EKG - Nurse/Tech; Complete Time: 13:54 rt EC:31 Rate is 63 beats/min. Rhythm is regular, Normal Sinus Rhythm with No ectopy. QRS [place] rt is Normal. LA interval is normal. QRS interval is normal. QT interval is normal. No Q waves. T waves are Normal. No ST changes noted. Interpreted by me. Administered Medications: 13:54 Drug: Famotidine IVP 20 mg IVP once; dilute with 10 mL 0.9% NaCl; give over 2 minutes kc6 Route: IVP; Site: left antecubital; 15:32 Follow up: Response: No adverse reaction kc6 13:54 Drug: Ondansetron IVP 4 mg IVP once; over 2 minutes Route: IVP; Site: left antecubital; kc6 15:32 Follow up: Response: No adverse reaction; Nausea is decreased kc6 13:54 Drug: NS 0.9% IV 1000 ml IV at 1 bolus Per protocol; to be given as a bolus over 60 kc6 minutes Route: IV; Rate: 1 bolus; Site: left antecubital; 15:32 Follow up: Response: No adverse reaction; IV Status: Completed infusion; IV Intake: kc6 1000ml 13:54 Drug: GI Cocktail without - (Maalox PO 30 ml, Lidocaine Mucous Membrane 2 % 15 kc6 ml) PO once Route: PO; 15:32 Follow up: Response: No adverse reaction kc6 14:43 Drug: morphine IVP or IV 4 mg IVP once over 4 mins Route: IVP; Infused Over: 4 mins; db Site: right antecubital; 15:31 Follow up: Response: No adverse reaction; Pain is decreased; RASS: Alert and Calm (0) kc6 14:54 Not Given (Patient Refused): [id number] mg PO once kc6 15:31 Not Given (Physician Discretion): ns 0.9% 500 ml 500 ml IV at 1 bolus once; to be given kc6 as a bolus over 30 minutes Disposition Summary: 10/09/24 15:30 Discharge Ordered Notes: Location: Home rt Problem: new rt Symptoms: have improved rt Condition: Stable rt Diagnosis - Epigastric pain rt Followup: rt - With: Private Physician - When: 2 - 3 days - Reason: Discharge Instructions: - Discharge Summary Sheet rt - Abdominal Pain, Adult rt - Gastritis, Adult rt Forms: - Medication Reconciliation Form rt - Antibiotic Education rt - Prescription Opioid Use rt - Patient Portal Instructions rt - Leadership Thank You Letter rt Prescriptions: - Carafate 100 mg/mL Oral suspension - take 10 milliliter ORAL route every 4 hours as needed; 150 milliliter; Refills: rt 0, Product Selection Permitted - Protonix 40 mg Oral Tablet - take 1 tablet ORAL route once daily; 30 tablet; Refills: 0, Product Selection rt Permitted Signatures: Dispatcher [employer] Francheska Cox, Rose Rapp RN, ph RN RN kc6 Blank Kirkland, RN RN Nicola Nava MD MD rt
[2024-10-09 16:15] VITALS: TEMP 98.7
[2024-10-09 16:20] VITALS: BP 110/77; O2SAT 99
--- NOTE | 2024-10-11 14:46 | EKG ---
Test Date: 2024-10-09 Test Time: 13:32:28 Field Case Manager: REKHA MEASUREMENT RESULTS: Intervals: Rate: 63 MN: 134 QRSD: 84 QT: 446 QTc: 456 [place]: P: 31 MN: 134 QRS: 27 T: 62 INTERPRETIVE STATEMENTS: Normal sinus rhythm Normal ECG Compared to ECG 10/05/2024 13:28:39 Myocardial infarct finding no longer present Electronically Signed On 10-11-24 14:41:59 CDT by Chu Connor
== END 2024-10-09 15:55 | disposition home or self-care (01) ==
LOC: ER 12:15
DX: R10.13 Epigastric pain (principal); R53.1 Weakness; R19.7 Diarrhea, unspecified
CPT/HCPCS: 36415; 74177; 80053; 81001; 83690; 84484; 85025; 93005; 99284; J2405; J7030; Q9967